=== PATIENT | female | born 1935 ===

== ENCOUNTER 2020-10-02 15:24 | Outpatient (CLI) | payer OTHER | END 2020-10-02 15:26 | disposition home or self-care (01) | LOC: NUCLEAR 15:24 | DX: M81.0 Age-related osteoporosis without current pathological fracture (principal) ==

== ENCOUNTER 2021-10-17 21:08 | Emergency (ER) | payer OTHER ==
[~2021-10-17] VITALS: Ht 157.5 cm; Wt 63.5 kg
== END 2021-10-18 00:55 | disposition home or self-care (01) ==
LOC: EMR PED 21:08 → ER 21:08 → EMR PED 21:50 → ER 10-18 00:55
DX: F41.1 Generalized anxiety disorder (principal); E03.8 Other specified hypothyroidism; E78.00 Pure hypercholesterolemia, unspecified